=== PATIENT | female | born 1990 | race Caucasian/White ===

== ENCOUNTER 2019-10-31 06:00 | Inpatient (IN) ==
[2019-10-31] MEDS ORDERED: Metoclopramide 10 MG/2 ML VIAL IVP PRN (06:44)
[2019-10-31] MEDS ORDERED: *HR* Nalbuphine 10 MG/ML AMPUL IVP PRN (06:44)
[2019-10-31] MEDS ORDERED: Famotidine 20 MG/2 ML VIAL IVP PRN (06:44)
[2019-10-31] MEDS ORDERED: Naloxone 0.4 MG/ML INJ IVP PRN ×2 (06:44→12:04)
[2019-10-31 07:48] LABS: Basophils # 0.1 K/mcL (0.0-0.2); Basophils % 0.5 %; Eosinophils # 0.2 K/mcL (0.0-0.6); Eosinophils % 1.9 %; Hematocrit 34.9 % (35.3-44.9); Hemoglobin 11.4 g/dL (11.5-15.4); Immature Granulocytes % 0.8 % (0-4); Lymphocytes # 1.9 K/mcL (0.6-4.6); Lymphocytes % 18.4 %; Mean Corpuscular HGB Conc 32.7 g/dL (31.6-35.5); Mean Corpuscular Hemoglobin 29.6 pg (28.0-33.3); Mean Corpuscular Volume 90.6 fL (83.0-100.0); Monocytes # 0.8 K/mcL (0.0-1.3); Monocytes % 7.6 %; Neutrophils # 7.3 K/mcL (1.6-8.9); Platelet Count 242 K/mcL (140-400); Red Blood Count 3.85 M/mcL (3.82-4.97); Red Cell Distribution Width 12.9 % (11.5-14.5); Segmented Neutrophils % 70.8 %; White Blood Count 10.3 K/mcL (4.3-11.1)
[2019-10-31] MEDS ORDERED: miSOPROStoL 25 MCG TABLET VG SCH (08:00)
[2019-10-31 08:12] LABS: Amphetamine Screen,Urine Negative ng/mL (Cutoff=1000); Barbiturate Screen,Urine Negative ng/mL (Cutoff=200); Benzodiazepines Screen,Urine Negative ng/mL (Cutoff=200); Cannabinoid Screen,Urine Negative ng/mL (Cutoff = 50); Cocaine Screen,Urine Negative ng/mL (Cutoff= 300); Opiate Screen,Urine Negative ng/mL (Cutoff=300); Phencyclidine Screen,Urine Negative ng/mL (Cutoff=25)
[2019-10-31] MEDS ORDERED: Ropivacaine/PF 0.2% 20 ML VIAL EP ONE (12:04)
[2019-10-31] MEDS ORDERED: EPHEDrine 50 MG/ML VIAL IVP PRN (12:04)
[2019-10-31] MEDS ORDERED: *HR* FentaNYL (PF) 100 MCG/2 ML VIAL EP ONE (12:04)
[2019-10-31] MEDS ORDERED: Ondansetron 4 MG/2 ML VIAL IVP PRN (12:04)
[2019-10-31] MEDS ORDERED: Epidural Premix (fent/bupiv) 110 ML EP SCH (12:15)
[2019-10-31] MEDS ORDERED: Oxytocin 20 units/ LR 1000 mL 20 UNIT/1,000 ML BAG IVC SCH ×2 (13:15→23:03)
[2019-10-31] MEDS: Ringers Solution, Lactated 1,000 ML IVC SCH ×2 (14:14→19:16)
[2019-10-31] MEDS ORDERED: *HR* FentaNYL (PF) 100 MCG/2 ML VIAL ONE (14:44)
[2019-10-31] MEDS ORDERED: Ropivacaine/PF 0.2% 20 ML VIAL ONE (14:44)
[2019-10-31] MEDS ORDERED: EPHEDrine 50 MG/ML VIAL ONE (15:28)
[2019-10-31] MEDS ORDERED: Benzocaine/Menthol 56 GM AEROSOL SPRAY TP PRN (23:03)
[2019-10-31] MEDS ORDERED: Acetaminophen 325 MG TABLET PO PRN (23:03)
[2019-10-31] MEDS ORDERED: Ibuprofen 600 MG TABLET PO PRN (23:03)
[2019-10-31] MEDS ORDERED: Lanolin 7 G OINT...G. TP PRN (23:03)
[2019-11-01 02:59] LABS: Basophils % 0.2 %; Eosinophils # 0.1 K/mcL (0.0-0.6); Eosinophils % 0.6 %; Hematocrit 29.6 % (35.3-44.9); Hemoglobin 9.9 g/dL (11.5-15.4); Immature Granulocytes % 0.7 % (0-4); Lymphocytes # 1.4 K/mcL (0.6-4.6); Lymphocytes % 9.5 %; Mean Corpuscular HGB Conc 33.4 g/dL (31.6-35.5); Mean Corpuscular Hemoglobin 29.3 pg (28.0-33.3); Mean Corpuscular Volume 87.6 fL (83.0-100.0); Mean Platelet Volume 10.8 fL (9.4-12.4); Monocytes # 0.8 K/mcL (0.0-1.3); Monocytes % 5.2 %; Platelet Count 236 K/mcL (140-400); Red Blood Count 3.38 M/mcL (3.82-4.97); Segmented Neutrophils % 83.8 %; White Blood Count 14.3 K/mcL (4.3-11.1)
[2019-11-01] MEDS ORDERED: Prenatal Vit/FA 1 EACH TABLET PO SCH (09:00)
[2019-11-01 17:16] VITALS: BP 122/78
== END 2019-11-01 13:15 | disposition home or self-care (01) | DRG 807 ==
LOC: 1NENULAB 06:13 → 1NENUOBS 22:52
PROVIDERS: ADMIT Registered Nurse; ATTEND Registered Nurse